=== PATIENT | female | born 1990 | race African-American/Black ===

== ENCOUNTER 2021-01-03 22:01 | Emergency (ER) | payer MEDICAID ==
[~2021-01-03] VITALS: Ht 165.1 cm; Wt 58.0 kg
[2021-01-04 00:21] LABS: CLARITY URINE CLEAR (CLEAR); COLOR URINE YELLOW (YELLOW); KETONES URINE NEGATIVE (NEGATIVE); LEUKOCYTE ESTERASE URINE 2+ (NEGATIVE); NITRITE URINE NEGATIVE (NEGATIVE); OCCULT BLOOD URINE NEGATIVE (NEGATIVE); PROTEIN URINE NEGATIVE (NEGATIVE); SPECIFIC GRAVITY URINE 1.009 (1.005-1.030); UROBILINOGEN URINE 0.2 E.U./dL (0.2-1.0)
[2021-01-04 04:05] VITALS: BP 121/69
== END 2021-01-04 00:46 | disposition left against medical advice (07) ==
LOC: ER 22:01
DX: N89.8 Other specified noninflammatory disorders of vagina (principal)
CPT/HCPCS: 81003; 81025; 99283

== ENCOUNTER 2021-09-05 01:02 | Emergency (ER) | payer MEDICAID, OTHER ==
[~2021-09-05] VITALS: Ht 162.6 cm; Wt 55.0 kg
[2021-09-05 01:51] LABS: CLARITY URINE CLEAR (CLEAR); COLOR URINE YELLOW (YELLOW); KETONES URINE NEGATIVE (NEGATIVE); LEUKOCYTE ESTERASE URINE 2+ (NEGATIVE); NITRITE URINE NEGATIVE (NEGATIVE); OCCULT BLOOD URINE 1+ (NEGATIVE); PH URINE 7.5 (4.5-8.0); PROTEIN URINE NEGATIVE (NEGATIVE); SPECIFIC GRAVITY URINE 1.023 (1.005-1.030)
[2021-09-05 03:45] VITALS: BP 129/84
[2021-09-05] MEDS ORDERED: SULF1TAB48 PO (03:47)
[2021-09-05] MEDS ORDERED: METR-167 PO (03:47)
[2021-09-09 19:06] LABS: NEISSERIA GONORRHOEAE NAA Negative (Negative)
== END 2021-09-05 03:55 | disposition home or self-care (01) ==
LOC: ER 01:02
DX: N76.0 Acute vaginitis (principal); N39.0 Urinary tract infection, site not specified
CPT/HCPCS: 81003; 81025; 87210; 87491; 87591; 99284